=== PATIENT | female | born 1985 | race Caucasian/White ===

== ENCOUNTER 2017-04-29 11:40 | Emergency (ER) | payer SELFPAY ==
[~2017-04-29] VITALS: Ht 152.4 cm; Wt 113.6 kg
[2017-04-29 11:43] VITALS: BP 132/86; PULSE 96; TEMP 99.2
[2017-04-29] MEDS ORDERED: CELEXA40 MG PO ×2 (11:45→12:05)
== END 2017-04-29 12:15 | disposition home or self-care (01) ==
LOC: COL.ER 11:40
DX: Z76.0 Encounter for issue of repeat prescription (principal); F32.9 Major depressive disorder, single episode, unspecified

== ENCOUNTER 2017-05-23 09:01 | Emergency (ER) | payer OTHER ==
[~2017-05-23] VITALS: Ht 152.4 cm; Wt 111.4 kg
[~2017-05-23 09:01] MED LIST: CELEXA40 MG PO
[2017-05-23 09:08] VITALS: BP 115/65; PULSE 92; TEMP 99.6
[2017-05-23] MEDS ORDERED: TESSALON P100 MG/CAP PO (10:32)
== END 2017-05-23 10:55 | disposition home or self-care (01) ==
LOC: COL.ER 09:01
DX: J06.9 Acute upper respiratory infection, unspecified (principal); F32.9 Major depressive disorder, single episode, unspecified; Z98.890 Other specified postprocedural states